=== PATIENT | female | born 1980 | race Caucasian/White ===

== ENCOUNTER 2017-09-30 06:15 | Day surgery (SDC) | payer OTHER | END 2017-09-30 15:35 | disposition home or self-care (01) | LOC: CIR.AMB 06:15 | DX: D12.8 Benign neoplasm of rectum (principal); K64.2 Third degree hemorrhoids ==

== ENCOUNTER 2018-03-05 11:51 | Emergency (ER) | payer OTHER ==
[~2018-03-05] VITALS: Ht 165.1 cm; Wt 101.6 kg
== END 2018-03-05 22:09 | disposition home or self-care (01) ==
LOC: ER 11:51
DX: K52.9 Noninfective gastroenteritis and colitis, unspecified (principal)

== ENCOUNTER 2018-10-29 08:25 | Day surgery (SDC) | payer OTHER | END 2018-10-29 13:25 | disposition home or self-care (01) | LOC: AMB-ENDOS 08:25 | DX: D12.4 Benign neoplasm of descending colon (principal); K64.1 Second degree hemorrhoids ==

== ENCOUNTER 2019-02-09 16:44 | Inpatient (IN) | payer OTHER ==
[~2019-02-09] VITALS: Ht 165.1 cm; Wt 95.3 kg
[~2019-02-09 16:44] MED LIST: CONEX TABLET1 EACH PO; PREDNISONE20 MG PO; ZITHROMAX500 MG PO
== END 2019-02-11 13:50 | disposition home or self-care (01) | DRG 745 ==
LOC: O/R 02-10 06:30 → OB/GYN 02-10 14:30 → RECOVERY 02-10 15:36 → OB/GYN 02-11 13:50
PROVIDERS: Obstetrics & Gynecology Obstetrics; ADMIT Specialist
PROC: 0UL70ZZ Occlusion of Bilateral Fallopian Tubes, Open Approach (ICD-10-PCS; principal; 2019-02-10 08:30)
PROC: 0J080ZZ Alteration of Abdomen Subcutaneous Tissue and Fascia, Open Approach (ICD-10-PCS; 2019-02-10 08:30)
DX: Z30.2 Encounter for sterilization (principal); E65 Localized adiposity; E66.01 Morbid (severe) obesity due to excess calories